=== PATIENT | male | born 1980 | race Caucasian/White ===

== ENCOUNTER 2017-11-02 07:04 | Inpatient (IN) | payer BC ==
[~2017-11-02] VITALS: Ht 165.1 cm; Wt 110.4 kg
[2017-11-02 07:09] VITALS: Ht 165.1 cm; Wt 110.4 kg
[2017-11-02 08:05] LABS: BASOPHIL % 0.5 % (0-2); PLATELET COUNT 338 x10^3mcL (130-400)
[2017-11-02 08:07] LABS: RED CELL DISTRIBUTION WIDTH 16.7 % (11.5-14.5)
[2017-11-02 08:19] LABS: CALCIUM 8.7 mg/dL (8.5-10.1); CARBON DIOXIDE 25.3 mmol/L (21-32); CHLORIDE SERUM 99 mmol/L (98-107); CREATININE SERUM 0.8 mg/dL (0.7-1.3); GFR1 > 60 mL/min; GLUCOSE SERUM 100 mg/dL (74-106); SODIUM SERUM 138 mmol/L (136-145)
[2017-11-02 08:24] LABS: ALBUMIN 3.7 g/dL (3.4-5.0); ALKALINE PHOSPHATASE 71 U/L (46-116); ALT/SGPT 28 U/L (16-63); AST/SGOT 13 U/L (15-37); BILIRUBIN TOTAL 0.3 mg/dL (0.20-1.00); TOTAL PROTEIN, SERUM 8.1 g/dL (6.4-8.2)
[2017-11-02 11:14] LABS: AMPHETAMINE QUAL UR NONE DETECTED (NEG <=1000)
[2017-11-02 11:29] LABS: UA SPECIFIC GRAVITY 1.015 (1.005-1.035); microscopic required? YES; urine erythrocyte 1+ (NEGATIVE)
[2017-11-02] MEDS ORDERED: TRAZODONE50 M1 PO (11:34)
[2017-11-02 12:19] LABS: PHOSPHOROUS 3.4 mg/dL (2.5-4.9)
[2017-11-02 12:22] LABS: FREE T4 0.9 ng/dL (0.76-1.46); FREE THYROXINE INDEX 2.2 ug/dL (1.4-4.5); T4(THYROXINE) 7.5 ug/dL (4.7-13.3)
[2017-11-02 14:21] VITALS: BP 106/74
[2017-11-02 16:32] VITALS: BP 127/71
[2017-11-02 19:45] VITALS: BP 128/79
[2017-11-02 19:58] VITALS: BP 123/77
[2017-11-03 06:15] VITALS: BP 109/68
[2017-11-03 06:35] LABS: CALCIUM 8.5 mg/dL (8.5-10.1); CARBON DIOXIDE 23.7 mmol/L (21-32); CHLORIDE SERUM 103 mmol/L (98-107); CREATININE SERUM 0.7 mg/dL (0.7-1.3); GFR1 > 60 mL/min; GLUCOSE SERUM 97 mg/dL (74-106); PHOSPHOROUS 3.6 mg/dL (2.5-4.9); POTASSIUM SERUM 3.9 mmol/L (3.5-5.1); SODIUM SERUM 139 mmol/L (136-145)
[2017-11-03 07:29] LABS: BASOPHIL % 0.3 % (0-2); PLATELET COUNT 281 x10^3mcL (130-400)
[2017-11-03 07:30] LABS: RED CELL DISTRIBUTION WIDTH 17.2 % (11.5-14.5)
[2017-11-03 09:16] LABS: T3 TOTAL 1.41 ng/mL
[2017-11-03 09:51] VITALS: BP 115/64
[2017-11-03] MEDS ORDERED: TRAZODONE50 M1 PO (13:14)
[2017-11-03] MEDS ORDERED: SIMETHICONE80 MG CH (13:22)
[2017-11-03] MEDS ORDERED: ATIVAN1 MG PO (13:27)
[2017-11-03] MEDS ORDERED: CITALOPRAM HYDR10 M1 PO (13:29)
[2017-11-03 13:57] VITALS: BP 112/69
[2017-11-03 15:14] VITALS: BP 112/69
== END 2017-11-03 16:15 | disposition home or self-care (01) | DRG 392 ==
LOC: ED 07:04 → DU 10:52
PROVIDERS: Family Medicine Sports Medicine; Specialist
DX: K21.9 Gastro-esophageal reflux disease without esophagitis (principal); F33.1 Major depressive disorder, recurrent, moderate; Z68.41 Body mass index [BMI] 40.0-44.9, adult; F41.1 Generalized anxiety disorder; F12.10 Cannabis abuse, uncomplicated; Z83.3 Family history of diabetes mellitus; Z82.49 Family history of ischemic heart disease and other diseases of the circulatory system; Z87.891 Personal history of nicotine dependence; R31.9 Hematuria, unspecified; F41.0 Panic disorder [episodic paroxysmal anxiety]; G89.29 Other chronic pain; M54.9 Dorsalgia, unspecified; E66.9 Obesity, unspecified
CPT/HCPCS: 83880; 84439; J0696; J2060; J7030; Q0092

== ENCOUNTER 2019-12-24 10:06 | Emergency (ER) | payer OTHER ==
[~2019-12-24] VITALS: Ht 165.1 cm; Wt 107.5 kg
[~2019-12-24 10:06] MED LIST: ATIVAN1 MG PO; CITALOPRAM HYDR10 M1 PO; SIMETHICONE80 MG CH; TRAZODONE50 M1 PO
[2019-12-24 10:09] VITALS: Ht 165.1 cm; Wt 107.5 kg
[2019-12-24 10:32] VITALS: BP 110/70
== END 2019-12-24 10:32 | disposition home or self-care (01) ==
LOC: ED 10:06
DX: M54.32 Sciatica, left side (principal); M25.512 Pain in left shoulder; Z88.1 Allergy status to other antibiotic agents; Z88.8 Allergy status to other drugs, medicaments and biological substances
CPT/HCPCS: J1885

== ENCOUNTER 2020-01-24 18:23 | Emergency (ER) | payer OTHER ==
[~2020-01-24] VITALS: Ht 165.1 cm; Wt 108.9 kg
[2020-01-24 18:26] VITALS: Ht 165.1 cm; Wt 108.9 kg
[2020-01-24 19:38] VITALS: BP 108/70
== END 2020-01-24 19:38 | disposition home or self-care (01) ==
LOC: ED 18:23
DX: J32.9 Chronic sinusitis, unspecified (principal); Z88.1 Allergy status to other antibiotic agents; Z88.8 Allergy status to other drugs, medicaments and biological substances

== ENCOUNTER 2020-04-25 17:12 | Emergency (ER) | payer OTHER ==
[~2020-04-25] VITALS: Ht 165.1 cm; Wt 106.6 kg
[2020-04-25 17:39] VITALS: BP 108/82; Ht 165.1 cm; Wt 106.6 kg
== END 2020-04-25 18:47 | disposition left against medical advice (07) ==
LOC: ED 17:12
DX: M54.16 Radiculopathy, lumbar region (principal); E66.9 Obesity, unspecified; Z68.39 Body mass index [BMI] 39.0-39.9, adult; Z88.1 Allergy status to other antibiotic agents; Z88.8 Allergy status to other drugs, medicaments and biological substances